=== PATIENT | male | born 1965 | race Caucasian/White ===

== ENCOUNTER 2017-06-03 06:41 | Day surgery (SDC) | payer OTHER ==
[2017-06-02 10:17] VITALS: BMI 47.5
[2017-06-03] MEDS ORDERED: BUPIVACAINE HCL/PF 2.5 MG/ML - 30 ML VIAL IJ ONE (07:03)
[2017-06-03] MEDS ORDERED: EPINEPHrine 1:1,000 1 MG/1 ML - 30ML VIAL (INJECTION) ONE (08:20)
[2017-06-03] MEDS ORDERED: BUPIVACAINE HCL/PF 0.25% (2.5MG/ML) 10 ML VIAL IJ ONE (08:58)
[2017-06-03] MEDS ORDERED: PROPOFOL 20 ML ONE ×2 (08:59→09:35)
[2017-06-03] MEDS ORDERED: ceFAZolin SODIUM 1 GM VIAL ONE (09:12)
[2017-06-03] MEDS ORDERED: ONDANSETRON 4 MG/2 ML VIAL ONE ×2 (09:32→10:10)
[2017-06-03] MEDS ORDERED: KETOROLAC TROMETHAMINE 30 MG/1 ML VIAL ONE (09:49)
[2017-06-03] MEDS ORDERED: MIDAZOLAM HCL 2 MG/2 ML SINGLE DOSE VIAL ONE (09:53)
[2017-06-03] MEDS ORDERED: oxyCODONE HCL 5 MG TABLET ONE (10:55)
[2017-06-03] MEDS ORDERED: oxyCODONE HCL 5 MG TABLET PO ONE (11:00)
[2017-06-03 11:07] VITALS: TEMP 97.9
[2017-06-03] MEDS ORDERED: LACTATED RINGERS SOLUTION 1,000 ML IV SCH (11:30)
[2017-06-03] MEDS ORDERED: oxyCODONE HCL 5 MG TABLET PO PRN (11:30)
[2017-06-03] MEDS ORDERED: ONDANSETRON 4 MG/2 ML VIAL IVPUSH PRN (11:30)
[2017-06-03 11:38] VITALS: BP 100/69; PULSE 96
--- NOTE | 2017-06-07 01:24 | OP ---
DATE OF OPERATION: 06/03/2017 SURGEON: Sumanth Arias MD DETONATOR MAKER: LETTY Bravo PREOPERATIVE DIAGNOSIS: 1. Left knee medial and lateral meniscal tears. 2. Left knee cartilage injury. 3. Left knee synovitis. POSTOPERATIVE DIAGNOSIS: 1. Left knee medial and lateral meniscal tears. 2. Left knee cartilage injury. 3. Left knee synovitis. PROCEDURE: 1. Left knee arthroscopy and partial meniscectomy of the medial and lateral meniscus. 2. Left knee arthroscopy with chondroplasty and abrasioplasty. 3. Left knee arthroscopy and synovectomy. CPT code 81080, 01051, 38678. FINDINGS: 1. Medial meniscus body and posterior horn tear. 2. Lateral meniscus posterior horn tear. 3. Synovitis of patellofemoral, medial and lateral notch area. 4. Anterior thickened scar tissue, anterior to medial and lateral joint line. 5. Antegrade 2 cartilage injury of medial femoral condyle. 6. ACL and PCL intact. 7. No cartilage changes lateral. 8. Antegrade 2-3 cartilage injury to the anterior patellofemoral trochlea with antegrade 4 changes along the patellofemoral trochlea at the site of synovial adhesions. PROCEDURE: Informed consent was obtained. The patient was taken to the operating room where the left lower extremity was prepped and draped in a sterile fashion. A tourniquet was placed on the left upper thigh but not inflated. Using standard arthroscopic technique, a lateral incision and portal were made which allowed for introduction of the camera into the suprapatellar bursa. This was then taken to the medial joint line where under direct visualization, a medial incision and portal were made. Excessive synovium noted in the medial, lateral, patellofemoral and notch area was removed by the up-biting shaver and Bovie cautery. This was found to bring inflammatory tissue into the joint surface, a source of joint pain and dysfunction. Probing of the medial and lateral meniscus found tears described in the findings. These were removed with an up-biting shaver and taken back to a stable rim. Grade 2-3 degenerative changes were treated with chondroplasty, removing all flaking surfaces with low setting Bovie used along the periphery. Grade 4 changes were treated with abrasion-plasty. All areas of the knee were once again re-examined. The knee was then drained. A single suture was placed on all portals. Sterile dressing was placed. The patient was transferred to the recovery room. SUMANTH ARIAS M.D. SHANNA/[id number]
--- NOTE | 2017-06-07 13:32 | PATH ---
Surgical Pathology Report Patient Name: BARRINGTON RIZO [facility]. Rec. #: [id number] /Age/Gender: 1965 (Age: 51) / M Account: [id number] Location: [facility] Taken: 06/03/2017 Received: 06/03/2017 Reported: 06/07/2017 Physicians: José Malone M.D. Specimen(s) Received LEFT KNEE SHAVINGS Clinical History Left knee internal derangement Final Diagnosis KNEE, LEFT, ARTHROSCOPIC SHAVING: FIBROCARTILAGE WITH MYXOID DEGENERATIVE CHANGES, ALONG WITH PORTIONS OF SYNOVIUM . Electronically Signed Ronni Rangel M.D. Gross Description Received in formalin, labeled "left knee shavings," is a 3 x 3 x 0.5 cm. aggregate of duque-yellow soft tissue fragments. A sales representative malt liquors portion is submitted in one cassette. [facility]/06/06/2017 [facility]/06/06/2017
== END 2017-06-03 11:30 | disposition home or self-care (01) ==
LOC: FASU 06:41
PROVIDERS: ATTEND Orthopaedic Surgery
PROC: 0SBD4ZZ Excision of Left Knee Joint, Percutaneous Endoscopic Approach (ICD-10-PCS; 2017-06-03)
PROC: 0SBD4ZZ Excision of Left Knee Joint, Percutaneous Endoscopic Approach (ICD-10-PCS; 2017-06-03)
PROC: 0SBD4ZZ Excision of Left Knee Joint, Percutaneous Endoscopic Approach (ICD-10-PCS; principal; 2017-06-03 08:58)
DX: S83.242A Other tear of medial meniscus, current injury, left knee, initial encounter (principal); S83.282A Other tear of lateral meniscus, current injury, left knee, initial encounter; S83.8X2A Sprain of other specified parts of left knee, initial encounter; M65.862 Other synovitis and tenosynovitis, left lower leg; X58.XXXA Exposure to other specified factors, initial encounter; Y93.9 Activity, unspecified; Y92.9 Unspecified place or not applicable
CPT/HCPCS: 88304-TC; 94760

== ENCOUNTER 2024-05-16 05:18 | Inpatient (IN) | payer OTHER ==
[2024-05-16] MEDS ORDERED: ceFAZolin SODIUM 1 GM VIAL ONE (06:11)
[2024-05-16] MEDS: CEFAZOLIN 1 GM in DEXTROSE 5%-WATER - 50 ML IVPB ONE (06:31)
[2024-05-16 06:35] LABS: BASO % 0.7 % (0-2.0); EOS % 3.7 % (0-4.5); HEMATOCRIT 44.1 % (35.4-49); HEMOGLOBIN 14.7 GM/dL (11.7-16.9); LYMPH % 20.7 % (8-40); MCH 30.8 pg (25.7-33.7); MCHC 33.4 g/dl (32.0-35.9); MEAN CELL VOLUME 92.1 fl (80-96); MEAN PLT VOLUME 7.6 fl (7.5-11.1); MONO % 7.6 % (3.8-10.2); NEUT % 67.3 % (42.8-82.8); PLATELET COUNT 277 10^3/uL (134-434); RBC 4.79 M/mm3 (4.00-5.60); RDW 14.2 % (11.9-15.9); WHITE BLOOD COUNT 6.3 K/mm3 (4.0-10.0)
[2024-05-16 06:51] LABS: POTASSIUM 4.4 mmol/L (3.5-5.1)
[2024-05-16 06:53] LABS: CALCIUM 8.6 mg/dL (8.5-10.1)
[2024-05-16 06:54] LABS: BLOOD UREA NITROGEN 17.1 mg/dL (7-18)
[2024-05-16 06:57] LABS: CREATININE 0.8 mg/dL (0.55-1.3)
[2024-05-16 06:59] LABS: BILIRUBIN,TOTAL 0.2 mg/dL (0.2-1); TOT PROT 6.5 g/dl (6.4-8.2)
[2024-05-16 07:53] LABS: ERYTHROCYTE SEDIMENTATION RATE 39 mm/hr (0-20)
[2024-05-16] MEDS ORDERED: ACETAMINOPHEN 325 MG TABLET (FP) PO PRN ×2 (10:16→13:40)
[2024-05-16] MEDS ORDERED: ACETAMINOPHEN 1000 MG/100 ML BAG IVPB PRN ×3 (10:16→13:16)
[2024-05-16] MEDS ORDERED: KETOROLAC TROMETHAMINE 15 MG/ML VIAL IM PRN (10:17)
[2024-05-16] MEDS ORDERED: KETOROLAC TROMETHAMINE 15 MG/ML VIAL IVPUSH PRN (10:46)
[2024-05-16] MEDS: ENOXAPARIN NA (PORCINE) 60 MG/0.6 ML DISP.SYRIN SQ SCH (11:22)
[2024-05-16] MEDS: CEFEPIME 2 GM in DEXTROSE 5%-WATER 100 ML IVPB SCH ×2 (11:25→16:09)
[2024-05-16] MEDS: ENOXAPARIN NA (PORCINE) 40 MG/0.4 ML DISP.SYRIN SQ SCH (11:35)
[2024-05-16] MEDS: ALBUTEROL SO4 2.5/IPRATROPIUM 0.5 INH SOL 3 ML VIAL.NEB. NEB SCH (11:45)
[2024-05-16] MEDS: VANCOMYCIN/WATER FOR INJ (PEG) 1,000 MG/200 ML BAG IVPB ONE (12:22)
[2024-05-16] MEDS: oxyCODONE HCL 5 MG TABLET PO PRN (15:00)
[2024-05-16] MEDS: GABAPENTIN 300 MG CAPSULE PO PRN (15:03)
[2024-05-16] MEDS: VANCOMYCIN 1,000 MG in DEXTROSE 5%-WATER - 250 ML IVPB SCH (16:09)
[2024-05-16] MEDS: CEFAZOLIN SODIUM 2 GM VIAL IVPB SCH (16:10)
[2024-05-16] MEDS: CEFAZOLIN SODIUM 2 GM in DEXTROSE 5%-WATER 100 ML IVPB SCH (16:11)
[2024-05-16] MEDS: CYCLOBENZAPRINE HCL 10 MG TABLET (FP) PO SCH (21:16)
[2024-05-16] MEDS: ACETAMINOPHEN 500 MG TABLET (FP) PO PRN (21:31)
[2024-05-17] MEDS: NICOTINE 21 MG/24 HOURS TOPICAL PATCH TD SCH (09:19)
[2024-05-17 09:23] LABS: BASO % 0.5 % (0-2.0); EOS % 2.9 % (0-4.5); HEMATOCRIT 44.2 % (35.4-49); HEMOGLOBIN 14.7 GM/dL (11.7-16.9); LYMPH % 21.3 % (8-40); MCH 30.9 pg (25.7-33.7); MCHC 33.3 g/dl (32.0-35.9); MEAN PLT VOLUME 8.1 fl (7.5-11.1); MONO % 7.5 % (3.8-10.2); NEUT % 67.8 % (42.8-82.8); PLATELET COUNT 267 10^3/uL (134-434); RBC 4.76 M/mm3 (4.00-5.60); RDW 14.5 % (11.9-15.9); WHITE BLOOD COUNT 7.6 K/mm3 (4.0-10.0)
[2024-05-17 09:39] LABS: BLOOD UREA NITROGEN 16.8 mg/dL (7-18); CALCIUM 9.2 mg/dL (8.5-10.1)
[2024-05-17 09:40] LABS: ALBUMIN 3.2 g/dl (3.4-5.0)
[2024-05-17 09:41] LABS: MAGNESIUM 2.4 mg/dL (1.8-2.4)
[2024-05-17 09:42] LABS: CREATININE 0.7 mg/dL (0.55-1.3); PHOSPHOROUS 3.5 mg/dL (2.5-4.9)
[2024-05-17 09:44] LABS: TOT PROT 6.8 g/dl (6.4-8.2)
[2024-05-17 09:49] LABS: BILIRUBIN,TOTAL 0.3 mg/dL (0.2-1)
[2024-05-17] MEDS ORDERED: NICOTINE 21 MG/24 HOURS TOPICAL PATCH TD SCH (10:00)
[2024-05-17] MEDS: FUROSEMIDE 40 MG/4 ML INJECTABLE VIAL IVPUSH SCH (15:27)
[2024-05-18] MEDS: NICOTINE 21 MG/24 HOURS TOPICAL PATCH TD ONE (00:32)
[2024-05-18 05:29] LABS: PH,URINE 5.5 (5.0-8.0); URINE APPEARANCE CLEAR; URINE BILIRUBIN NEGATIVE (NEGATIVE); URINE COLOR YELLOW; URINE GLUCOSE (UA) NEGATIVE (NEGATIVE); URINE KETONE NEGATIVE (NEGATIVE); URINE LEUK ESTERASE NEGATIVE (NEGATIVE); URINE NITRITE NEGATIVE (NEGATIVE); URINE PROTEIN NEGATIVE (NEGATIVE); URINE UROBILINOGEN 0.2 mg/dL (0.2-1.0)
[2024-05-18 09:56] LABS: HEMATOCRIT 44.1 % (35.4-49); HEMOGLOBIN 14.8 GM/dL (11.7-16.9); MCH 30.8 pg (25.7-33.7); MCHC 33.6 g/dl (32.0-35.9); MEAN CELL VOLUME 91.7 fl (80-96); MEAN PLT VOLUME 7.9 fl (7.5-11.1); PLATELET COUNT 242 10^3/uL (134-434); RDW 14.7 % (11.9-15.9); WHITE BLOOD COUNT 6.3 K/mm3 (4.0-10.0)
[2024-05-18 10:05] LABS: INR 0.99 (0.83-1.09); PROTHROMBIN TIME (PATIENT) 11.2 SEC (9.7-13.0)
[2024-05-18 10:58] LABS: POTASSIUM 4.6 mmol/L (3.5-5.1)
[2024-05-18 11:09] LABS: BLOOD UREA NITROGEN 20.3 mg/dL (7-18); CALCIUM 9.6 mg/dL (8.5-10.1); MAGNESIUM 2.2 mg/dL (1.8-2.4)
[2024-05-18 11:11] LABS: CHOLESTEROL 175 mg/dL (50-200)
[2024-05-18 11:12] LABS: CREATININE 0.8 mg/dL (0.55-1.3); PHOSPHOROUS 3.4 mg/dL (2.5-4.9)
[2024-05-18 11:14] LABS: BILIRUBIN,TOTAL 0.4 mg/dL (0.2-1); TOT PROT 6.5 g/dl (6.4-8.2)
[2024-05-18 11:17] LABS: HDL CHOLESTEROL 59 mg/dL (40-60); LDL CHOLESTEROL (ONLY SJRH) 104 mg/dL (5-100)
[2024-05-18] MEDS: BACITRACIN ZINC 15 GM TUBE TOPICAL OINTMENT TP SCH (17:32)
[2024-05-19 08:54] LABS: HEMOGLOBIN 14.4 GM/dL (11.7-16.9); MCH 31.3 pg (25.7-33.7); MCHC 34.2 g/dl (32.0-35.9); MEAN CELL VOLUME 91.6 fl (80-96); MEAN PLT VOLUME 7.9 fl (7.5-11.1); PLATELET COUNT 230 10^3/uL (134-434); RBC 4.59 M/mm3 (4.00-5.60); RDW 14.2 % (11.9-15.9); WHITE BLOOD COUNT 5.5 K/mm3 (4.0-10.0)
[2024-05-19 09:23] LABS: POTASSIUM 4.4 mmol/L (3.5-5.1)
[2024-05-19 09:33] LABS: CALCIUM 9.3 mg/dL (8.5-10.1)
[2024-05-19 09:34] LABS: BLOOD UREA NITROGEN 23.3 mg/dL (7-18); MAGNESIUM 2.2 mg/dL (1.8-2.4)
[2024-05-19 09:37] LABS: CREATININE 0.9 mg/dL (0.55-1.3); PHOSPHOROUS 4.2 mg/dL (2.5-4.9)
[2024-05-19 09:38] LABS: BILIRUBIN,TOTAL 0.2 mg/dL (0.2-1); TOT PROT 6.5 g/dl (6.4-8.2)
[2024-05-19] MEDS: FUROSEMIDE 40 MG/4 ML INJECTABLE VIAL IVPUSH SCH (14:59)
[2024-05-20] MEDS: FUROSEMIDE 40 MG/4 ML INJECTABLE VIAL IVPUSH SCH ×2 (06:17→15:09)
[2024-05-20] MEDS: oxyCODONE HCL 5 MG TABLET PO PRN (14:26)
[2024-05-20] MEDS: ACETAMINOPHEN 325 MG TABLET (FP) PO PRN (14:28)
[2024-05-20 15:22] VITALS: BMI 61.9
[2024-05-21 05:18] VITALS: PULSE 82
[2024-05-21] MEDS: FUROSEMIDE 40 MG/4 ML INJECTABLE VIAL IVPUSH SCH (06:06)
[2024-05-21] MEDS: oxyCODONE HCL 5 MG TABLET PO PRN (09:49)
[2024-05-21 10:13] LABS: HEMOGLOBIN 14.4 GM/dL (11.7-16.9); MCH 31.1 pg (25.7-33.7); MCHC 33.4 g/dl (32.0-35.9); MEAN PLT VOLUME 8.1 fl (7.5-11.1); PLATELET COUNT 217 10^3/uL (134-434); RBC 4.62 M/mm3 (4.00-5.60); RDW 14.3 % (11.9-15.9); WHITE BLOOD COUNT 6.7 K/mm3 (4.0-10.0)
[2024-05-21 10:20] LABS: POTASSIUM 4.3 mmol/L (3.5-5.1)
[2024-05-21 10:25] LABS: BLOOD UREA NITROGEN 25.1 mg/dL (7-18); CALCIUM 9.4 mg/dL (8.5-10.1)
[2024-05-21 10:28] LABS: ALBUMIN 3.1 g/dl (3.4-5.0)
[2024-05-21 10:29] LABS: CREATININE 0.8 mg/dL (0.55-1.3)
[2024-05-21 10:30] LABS: BILIRUBIN,TOTAL 0.4 mg/dL (0.2-1)
[2024-05-21 10:33] LABS: TOT PROT 6.6 g/dl (6.4-8.2)
[2024-05-21 15:34] VITALS: BP 101/70; RESP 18; TEMP 98.4
== END 2024-05-21 16:41 | disposition home or self-care (01) | DRG 603 ==
LOC: JER 05:18 → JERBED 07:31 → J6S 10:07
PROVIDERS: ADMIT Internal Medicine; ATTEND Internal Medicine
DX: L03.115 Cellulitis of right lower limb (principal); L97.919 Non-pressure chronic ulcer of unspecified part of right lower leg with unspecified severity; L97.929 Non-pressure chronic ulcer of unspecified part of left lower leg with unspecified severity; Z68.44 Body mass index [BMI] 60.0-69.9, adult; F17.210 Nicotine dependence, cigarettes, uncomplicated; E66.01 Morbid (severe) obesity due to excess calories; E87.70 Fluid overload, unspecified; M54.9 Dorsalgia, unspecified; I83.019 Varicose veins of right lower extremity with ulcer of unspecified site; E11.51 Type 2 diabetes mellitus with diabetic peripheral angiopathy without gangrene
CPT/HCPCS: 0241U-QW; 36415; 71045-TC-FY; 80053; 80061; 80307; 81003; 83036; 83735; 83880; 84100; 84443; 85025; 85027; 85610; 85651; 86140; 87081; 93005; 93010; 94640; 99285-25